=== PATIENT | male | born 1965 | race Caucasian/White ===

== ENCOUNTER 2016-11-20 10:45 | Outpatient (CLI) | payer BC ==
--- NOTE | 2016-11-21 11:38 | DIAGNOSTIC IMAGING REPORT ---
PROCEDURE: XR UPPER GI WITH AIR INDICATION: Left chest pain. Dysphagia. TECHNIQUE: Double contrast study. Fluoroscopy time, 3.9 minutes; 2050.11 mGy. 40 fluoroscopic images (including cinefluoroscopy). COMPARISON: None. FINDINGS: Patulous gastroesophageal junction with moderate gastroesophageal reflux. Associated mild tertiary contractions of the esophagus. Esophagus is otherwise normal. Mild thickening of gastric folds and first proximal duodenum. No evidence of ulcer. IMPRESSION: 1. Patulous gastroesophageal junction with moderate reflux. Associated mild tertiary contractions of the esophagus (esophageal spasm). 2. Mild thickening of gastric and duodenal folds. Consider hyperacidity, and gastritis or duodenitis. 3. Findings discussed with the patient. 4. Findings called to AMY Barahona.
== END 2016-11-20 23:00 ==
LOC: XR SRH 10:45
DX: R07.9 Chest pain, unspecified (principal); R13.10 Dysphagia, unspecified; K21.9 Gastro-esophageal reflux disease without esophagitis